=== PATIENT | male | born 1980 | race Caucasian/White ===

== ENCOUNTER 2019-11-07 09:26 | Inpatient (IN) | payer MEDICAID ==
[~2019-11-07] VITALS: Ht 170.2 cm; Wt 58.5 kg
[2019-11-07] MEDS ORDERED: quetiapine 100mg tablet PO PRN (11:20)
[2019-11-07] MEDS ORDERED: loperamide 2mg capsule PO PRN (11:20)
[2019-11-07] MEDS ORDERED: magnesium hydroxide 30ml (MOM) UD suspension PO PRN (11:20)
[2019-11-07] MEDS ORDERED: acetaminophen 325mg tablet PO PRN ×2 (11:20)
[2019-11-07] MEDS ORDERED: traZODone 50mg tablet PO PRN (11:20)
[2019-11-07] MEDS ORDERED: mag hydrox/Alum hydrox/simeth 30ml oral suspension PO PRN (11:20)
[2019-11-07 12:51] VITALS: BP 133/80
[2019-11-07] MEDS ORDERED: NO HOME MEDS (12:54)
[2019-11-07] MEDS ORDERED: LORazepam 0.5 MG tablet PO ONE (16:55)
--- NOTE | 2019-11-07 17:49 | NUR ---
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 Patient started reading conspiracy theories in July and recently became paranoid believing people (friends and family) were conspiring against him. Patient was having difficulty sleeping. Patient ran from his house when a friend came over to discuss what was going on with patient. Patient was brought to [facility] by friend once he was found in laying in neighbors yard. Patient has no history of mental illness.
--- NOTE | 2019-11-07 17:54 | NUR ---
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 Patient started reading conspiracy theories in July and recently became paranoid believing people (friends and family) were conspiring against him. Patient was having difficulty sleeping. Patient ran from his house when a friend came over to discuss what was going on with patient. Patient was brought to [facility] by friend once he was found in laying in neighbors yard. Patient has no history of mental illness. Assessment What has happened this shift: Patient arrived on the unit from [facility] at 1110. Patient was calm and cooperative. Patient denies suicidal ideation and states he has never been suicidal. Patient denies feeling paranoid but recognizes that he did have those feelings for several days. Patient spoke with Dr Blair today and was told he might have Bipolar disorder. Patient feels anxious and was tearful in the afternoon. Patient has a and 4 young children and is missing them. RN gave patient 0.5 mg of Ativan. Patient takes no medications. 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 Patient will start on Zyprexa tonight to help patient sleep and assist with any psychosis. Patient states he has more anxiety in the evening. S/I, H/I: patient denies A/VH: patient denies Sleep: no naps today ADL's: Independent Group attendance: n/a Were meds taken: Yes Any med S/E: None Mental Status Exam Appearance: Neat and clean Eye contact: Good Behavior: Cooperative Speech: normal Mood: slightly anxious/tearful Affect: Depressed about being here Thought process: Organized Thought Content: Missing his family Cognition: AAOX4 Insight: Fair Judgment: Fair Interventions PRN's used: Ativan 0.5 mg. Therapeutic interventions: Maintained a safe and therapeutic environment, provided clear and simple instructions, provided redirection and reduced external stimuli as needed, attempted to orient to reality, monitored behavior and need for intervention, provided active listening and positive encouragement, and maintained Q 15min safety checks. Restraints/seclusion/emergency medication: N/A
[2019-11-07 20:00] VITALS: BP 104/65
[2019-11-07] MEDS: olanzapine 10mg tablet PO SCH (20:15)
[2019-11-07] MEDS: LORazepam 0.5 MG tablet PO PRN (21:51)
--- NOTE | 2019-11-08 00:02 | NUR ---
Nursing Progress Note: Legal hold: 5150 Client on an involuntary hold for being gravely disabled Report received from Evelia CORONA with use of SBAR Why are they here: Patient started reading conspiracy theories in July and recently became paranoid believing people (friends and family) were conspiring against him. Patient was having difficulty sleeping. Patient ran from his house when a friend came over to discuss what was going on with patient. Patient was brought to [facility] by friend once he was found in laying in neighbors yard. Patient has no history of mental illness. He was placed on a 5150 hold for being gravely disabled Assessment What has happened this shift: The patient has been up on the unit. He is pleasant and friendly when approached for the evening assessment. He reports that is mood was better. He did state that his anxiety was higher in the evening. He stated, "Today I felt completely normal" He stated that he is missing his family and became teary eyed. He stated that he had this episode on his daughter's birthday so he felt guilty about that and putting his family through this. He stated that his energy level was lower than normal. He also stated that his concentration was not as good as it usually is. He denies auditory or visual hallucinations. He is not having any odd or bizarre behaviors. He is not making any delusional or paranoid statements. S/I, H/I: Denied by the patient A/VH: Denied ADL's: Independent Were meds taken: the patient is medication compliant Any med S/E: The patient stated that after he took the zyprexa he felt "jittery" and he appeared anxious. He was given ativan PRN Mental Status Exam Appearance: Appeared clean and well groomed Eye contact: Direct eye contact Behavior: Pleasant cooperative. Speech: coherent, moderate rate and rhythm Mood: "better" Affect: tearful at times Thought process: logical and linear Thought Content: no delusional thoughts verbalized Cognition: alert and oriented Insight: fair Judgment: fair Interventions PRN's used: PRN ativan Therapeutic interventions: One to one with the patient to educate him to his medications. Assessed for disordered thought processes Justification of Continued Inpatient Treatment: The client is newly admitted and is starting new medications tonight.
[2019-11-08 07:40] LABS: HEMOGLOBIN A1C 5.6 % (4.5-6.2)
[2019-11-08 07:47] LABS: CHOL/HDL RATIO 3.2 (0.00-4.99); CHOLESTEROL 175 MG/DL (0-200); HDL CHOLESTEROL 54 MG/DL (35-60); LDL CHOLESTEROL 108 MG/DL (50-100); TRIGLYCERIDES 68 MG/DL (20-135)
[2019-11-08 08:00] VITALS: BP 120/83
--- NOTE | 2019-11-08 13:42 | NUR ---
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 Patient started reading conspiracy theories in July and recently became paranoid believing people (friends, family, and the government) were conspiring against him. Patient was having difficulty sleeping and eating. Patient ran from his house when a friend came over to discuss what was going on with patient. Patient was brought to [facility] by friend once he was found in laying in neighbors yard. Patient has no history of mental illness. Assessment What has happened this shift: Received pt. laying awake in bed at the beginning of the shift, he reports he feels "Groggy," from DAMI[facility] Mireles. This medical writer encouraged pt. to discuss this with MD and he reported understanding. Pt. returned back to bed for a nap and awoke feeling better. 1:1 completed at bedside, pt. denies any S/I or depression, however appears depressed and tearful. Pt. states, "I just want to see my family, they live close by. They walk by this hospital every day." Pt. also denies any A/V/OWUSU and no delusional statements made this shift. However, pt. admits that he was having these when he was brought into the ER. He states, "I felt like I was in a movie about the Dougherty virus being fake, and others were against me. I realize that it was in my own head." Pt. isolates in his room throughout the shift, talking occasionally on the phone to his and reading the Bible. S/I, H/I: Denies A/VH: Denies, does not appear internally preoccupied Sleep: Pt. reports he slept well, however awoke feeling "Groggy." Sleep hours are 7 hours ADL's: Independent Group attendance: N/A Were meds taken: None ordered this shift Any med S/E: Pt. reports feeling "groggy" this morning r/t HS Chi, pt. will discuss with doctor. Will endorse to Noc shift. Mental Status Exam Appearance: Neat and appropriately dressed Eye contact: Good Behavior: Cooperative, fatigued, and withdrawn Speech: Soft, responds minimally to questions Mood: Guarded, however pleasant Affect: Constricted Thought process: Poverty of thought Thought Content: Depressed/tearful r/t missing his family Cognition: A&O X4 Insight: Poor Judgment: Poor Interventions PRN's used: None Therapeutic interventions: Introduced self and established rapport, maintained a safe and therapeutic environment, ensured contract for safety, provided clear and simple instructions, and maintained Q 15min safety checks. Restraints/seclusion/emergency medication:N/A Justification of Continued Inpatient Treatment: Pt. requires interruption of current crisis, medication adjustments
--- NOTE | 2019-11-08 17:23 | NUR ---
Assessment SS met with pt & engaged him in completing a psychosocial assessment. Pt signed HARMAN & TP-#9. Radha Rosado RIVETER HAND Addendum: 11/08/19 at 1724 by Radha Rosado SS Amended: Links added.
[2019-11-08 19:36] VITALS: BP 110/71
[2019-11-08] MEDS: olanzapine 10mg tablet PO SCH (21:36)
--- NOTE | 2019-11-09 04:53 | NUR ---
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 Patient started reading conspiracy theories in July and recently became paranoid believing people (friends, family, and the government) were conspiring against him. Patient was having difficulty sleeping and eating. Patient ran from his house when a friend came over to discuss what was going on with patient. Patient was brought to [facility] by friend once he was found in laying in neighbors yard. Patient has no history of mental illness. Assessment What has happened this shift: Patient laying in bed awake at the beginning of shift. Pleasant and cooperative with all care; complaint with medication. Patient denies SI, HI, A/VH. No delusional content provided this shift. His insight appears intact this shift; "I was in this sort of fantasy and that's why I checked into [facility], they held me for a while and got transferred here." Patient appears depressed as he explained "just want to sleep it off." Patient remains isolative to bedroom throughout the shift. S/I, H/I: Denies A/VH: Denies, does not appear internally preoccupied Sleep: Refer to sleep assessment ADL's: Independent Group attendance: N/A Were meds taken: Yes Any med S/E: None reported/observed this shift. Mental Status Exam Appearance: Neat and appropriately dressed Eye contact: Good Behavior: Isolative to self Speech: Clear, steady rate/rhythm Mood: Depressed Affect: Constricted Thought process: Linear Thought Content: Depressed Cognition: A&O X4 Insight: Good Judgment: Good Interventions PRN's used: None Therapeutic interventions: Introduced self and established rapport, maintained a safe and therapeutic environment, ensured contract for safety, provided clear and simple instructions, and maintained Q 15min safety checks. Restraints/seclusion/emergency medication:N/A Justification of Continued Inpatient Treatment: Pt. requires interruption of current crisis, medication adjustments
[2019-11-09 08:00] VITALS: BP 99/67
--- NOTE | 2019-11-09 11:30 | NUR ---
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 Patient started reading conspiracy theories in July and recently became paranoid believing people (friends, family, and the government) were conspiring against him. Patient was having difficulty sleeping and eating. Patient ran from his house when a friend came over to discuss what was going on with patient. Patient was brought to [facility] by friend once he was found in laying in neighbors yard. Patient has no history of mental illness. Assessment What has happened this shift: Pt. awoke for breakfast this morning, consumed 100%, and then returned back to sleep for a time. He awoke with c/o feeling "Groggy," from Chi again. He states, "I'm awake, but I feel like I got woken up at 0200, and I can't get my thoughts straight." This leader writer reported pt's c/o grogginess to DEEPALI Larios, will continue to monitor. 1:1 completed at bedside, pt. continues to deny all mental health s/s. No delusional statements made this shift, and pt. possibly be minimizing. No episodes of tearfulness exhibited. Pt. reports that he is looking forward to hopefully discharging soon because his parents are coming from [place] for a visit. He is more visible on the unit this shift, pacing the hallway and wearing headphones, interacting very minimally with others. Pt. speaks to his on the phone, and his requests to speak to the doctor regrading pt's treatment plan. Endorsed to DEEPALI Larios. S/I, H/I: Denies A/VH: Denies, does not appear internally preoccupied Sleep: Pt. reports he slept well, however awoke feeling "Groggy" again. Sleep hours are 8.5 hours ADL's: Independent Group attendance: N/A Were meds taken: None ordered this shift Any med S/E: Pt. reports feeling "groggy" this morning r/t Chi, DEEPALI Larios notified. Mental Status Exam Appearance: Neat and appropriately dressed Eye contact: Good Behavior: Cooperative, fatigued, and withdrawn Speech: Soft, responds minimally to questions Mood: Guarded, however pleasant Affect: Constricted Thought process: Poverty of thought Thought Content: Denies all M/H s/s, possibly minimizing Cognition: A&O X4 Insight: Poor Judgment: Poor to fair Interventions PRN's used: None Therapeutic interventions: Maintained a safe and therapeutic environment, ensured contract for safety, provided clear and simple instructions, notified MD r/t pt's ongoing c/o AM "Grogginess," monitored behaviors and need for intervention, and maintained Q 15min safety checks. Restraints/seclusion/emergency medication:N/A Justification of Continued Inpatient Treatment: Pt. requires interruption of current crisis, medication adjustments, and a safe an supportive environment.
[2019-11-09 19:48] VITALS: BP 104/67
[2019-11-09] MEDS ORDERED: OLANZapine 2.5MG tablet PO SCH (21:00)
[2019-11-09] MEDS: LORazepam 0.5 MG tablet PO PRN (22:57)
--- NOTE | 2019-11-10 05:14 | NUR ---
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 Patient started reading conspiracy theories in July and recently became paranoid believing people (friends, family, and the government) were conspiring against him. Patient was having difficulty sleeping and eating. Patient ran from his house when a friend came over to discuss what was going on with patient. Patient was brought to [facility] by friend once he was found in laying in neighbors yard. Patient has no history of mental illness. Assessment What has happened this shift: Patient observed walking in the [place] at the beginning of shift. Pleasant and cooperative with care; compliant with medication. Patient has been reporting "groggy" feeling r/t Zyprexa and starting this shift dose was lowered to 2.5mg. Patent denies SI, HI, A/VH and denies feeling depressed or sad. Reports feeling "overwhelmed" with the nature of the unit. Patient asked about snack and jokingly reported to advertising copywriter that he doesn't have much more to look forward to recently. He partook in HS snack before retiring to bed. Patient awoke around 2300 feeling anxious and wanting to get back to sleep; PRN Lorazepam provided with positive effect. S/I, H/I: Denies A/VH: Denies, does not appear internally preoccupied Sleep: Refer to sleep assessment ADL's: Independent Group attendance: N/A Were meds taken: Yes Any med S/E: None reported or observed this shift. Mental Status Exam Appearance: Neat, clean and appropriately dressed Eye contact: Good Behavior: Isolative to self Speech: Clear, steady rate/rhythm Mood: "Overwhelmed" Affect: Constricted Thought process: Linear Thought Content: Overwhelmed by the unit and denies all MH symptoms Cognition: A&O X4 Insight: Good Judgment: Good Interventions PRN's used: Lorazepam Therapeutic interventions: Introduced self and established rapport, maintained a safe and therapeutic environment, ensured contract for safety, provided clear and simple instructions, and maintained Q 15min safety checks. Restraints/seclusion/emergency medication:N/A Justification of Continued Inpatient Treatment: Pt. requires interruption of current crisis, medication adjustments
[2019-11-10 07:27] VITALS: BP 98/61
[2019-11-10] MEDS ORDERED: Lorazepam PO (09:11)
[2019-11-10] MEDS ORDERED: OLAN2.5T28 PO (09:11)
--- NOTE | 2019-11-10 11:05 | NUR ---
Pt discharged to home at 1033, left [facility] ambulatory and accompanied by spouse. No S/S distress noted. D/C instructions given to pt verbally and with pt via phone with no further questions. Prescriptions given to pt with dc packet. Pt possessions inventoried per PCT. Pt took all possessions. Pt given resources and instructions for follow up care via [facility] and PCP. Pt to self schedule. Pt denies SI/HI and states "feeling better" today.
--- NOTE | 2019-11-11 07:48 | NUR ---
Pt d/c home, SS referral closed. Radha Rosado, ZIGZAG MACHINE OPERATOR Addendum: 11/11/19 at 0749 by Radha Rosado Amended: Links added.
--- NOTE | 2019-11-11 08:53 | NUR ---
Late Note for contact made 11/09/19 SS met with pt and finalized dcp, per discussion pt agreed to allow SS to coordinate access to outpatient psychiatric care via [facility]. SS had t/c with [facility], per t/c pt will be assigned to a PMD who will provide referral to the Primary-Neuropsychiatry clinic @ [facility]. A packaging assembler will contact pt by phone following d/c and coordinate follow appointments with him. Pt informed and agreed to this plan. Radha Rosado LCSW Addendum: 11/11/19 at 0857 by Radha GALVIN Amended: Links added.
== END 2019-11-10 10:33 | disposition home or self-care (01) | DRG 751 ==
LOC: ADULT MH 09:26
PROVIDERS: ADMIT Psychiatry & Neurology Psychiatry; ATTEND Psychiatry & Neurology Psychiatry
DX: F29 Unspecified psychosis not due to a substance or known physiological condition (principal); F31.9 Bipolar disorder, unspecified; F41.9 Anxiety disorder, unspecified; F43.10 Post-traumatic stress disorder, unspecified
CPT/HCPCS: 36415; 80061; 83036; 87081; 99285